=== PATIENT | male | born 1935 | race Caucasian/White ===

== ENCOUNTER 2023-11-26 10:43 | Emergency (ER) | payer MEDICARE, SELFPAY ==
[2023-11-26] VITALS (27 sets, daily range): BP systolic 133–200; BP diastolic 70–111; PULSE 60–101; RESP 12–24; TEMP 36.6; O2SAT 93–100
--- NOTE | ~2023-11-26 | CT_ITS ---
EXAMINATION: CT brain wo con DATE: 11/26/2023 13:47 INDICATION: Syncope. TECHNIQUE: Computed tomography (CT) of the head was performed without intravenous contrast. The mA wa s adjusted according to patient size. Iterative reconstruction technique was employed. The dose-lengt h product was 605.33 mGy-cm. COMPARISON: None FINDINGS: There are scattered areas of low attenuation in the cerebral white matter, which is within normal limits for the patient's age. There is no intracranial hemorrhage, acute infarction, or abnorm al intracranial mass lesion. The ventricles are normal in size. There is mild mucosal thickening in t he paranasal sinuses. The mastoid air cells are normal. There are likely changes of ocular lens repla cement surgeries. IMPRESSION: 1. Normal aging brain. Reviewed, dictated and finalized at location E. A ROOM OPERATOR IMPRESSION: 1. Normal aging brain.
--- NOTE | ~2023-11-26 | XR_ITS ---
XR chest 1V 11/26/2023 13:54 Indication: Transient alteration of awareness Procedure: AP view of the chest Comparison: No prior studies for comparison. Findings: Heart size is normal. No focal air space disease, pulmonary edema, pleural effusion or susp ected pneumothorax. There are calcified granulomas of the right lung. No acute osseous abnormality. Impression: 1: No acute cardiopulmonary disease. Reviewed, dictated and finalized at location L. NG MILL OPERATOR Impression: 1: No acute cardiopulmonary disease.
--- NOTE | 2023-11-26 10:50 | ECG_ITS ---
Measurements Intervals [place] Rate: 67 P: CT: 0 QRS: 13 QRSD: 121 T: 12 QT: 413 QTc: 439 Interpretive Statements ATRIAL FIBRILLATION RIGHT BUNDLE BRANCH BLOCK [120+ ms QRS DURATION, UPRIGHT V1, 40+ ms S IN I/aVL/V4/V5/V6] NO PREVIOUS ECG AVAILABLE FOR COMPARISON Electronically Signed On 11-26-2023 16:02:50 PROGRAMS DIRECTOR by Ever Perez M.D.
[2023-11-26 11:21] LABS: Basophils Absolute Auto 0.1 K/mm3 (0.0-0.1); Eosinophils Absolute Auto 0.4 K/mm3 (0-0.3); Eosinophils Percent Auto 5.4 % (0-4.4); Hematocrit 42.1 % (42.0-52.0); Hemoglobin 13.7 g/dL (14.0-18.0); Immature Granulocyte Absolute 0.02 K/mm3 (0.00-0.031); Immature Granulocyte Percent A 0.3 % (0-0.5); Lymphocytes Absolute Auto 1.85 K/mm3 (0.9-3.2); Lymphocytes Percent Auto 26.9 % (18.3-44.2); Mean Corpuscular HGB Conc 32.5 g/dl (32-36); Mean Corpuscular Hemoglobin 29.4 pg (26-34); Mean Corpuscular Volume 90.3 fl (80-100); Mean Platelet Volume 11.9 fl (7.4-10.4); Monocytes Absolute Auto 0.4 K/mm3 (0.1-0.6); Monocytes Percent Auto 5.5 % (2.6-8.5); Neutrophils Absolute Auto 4.2 K/mm3 (1.3-6.7); Neutrophils Percent Auto 60.9 % (45.5-73.1); Platelet Count Result 199 k/mm3 (150-375); Red Blood Count 4.66 M/mm3 (4.6-6.20); Red Cell Distribution Width 13.4 % (11.5-14.5); White Blood Count 6.9 K/mm3 (4.5-10.0)
[2023-11-26 11:32] LABS: Alanine Aminotransferase 18 U/L (6-50); Albumin Level 3.6 g/dL (3.5-5.1); Alkaline Phosphatase 116 U/L (38-126); Anion Gap 8 mmol/L (8-16); Aspartate Amino Transferase 22 U/L (17-59); Bilirubin,Total 0.6 mg/dL (0.2-1.3); Blood Urea Nitrogen 15 mg/dL (9-20); Calcium 9.1 mg/dL (8.4-10.2); Carbon Dioxide 24 mmol/L (22-30); Chloride 105 mmol/L (98-107); Estimated CRCL calculation 39 ml/min; Estimated Glomerular Filt Rate > 60; Glucose 102 mg/dL (65-110); Potassium 4.3 mmol/L (3.4-5.0); Sodium 137 mmol/L (137-145)
[2023-11-26 13:09] LABS: Magnesium 1.7 mg/dL (1.6-2.3)
[2023-11-26] MEDS: SODIUM CHLORIDE 0.9% IV 1,000 ML 999 ML IV CONT (13:09)
[2023-11-26 13:22] LABS: Troponin I < 0.012 ng/mL (0.000-0.034)
[2023-11-26 13:41] LABS: Appearance Urine Clear (Clear); Bilirubin Urine Negative (Negative); Blood Urine Negative (Negative); Color Urine Yellow (Yellow); Glucose Urine UA Negative (Negative); Ketones Urine Negative (Negative); Leukocyte Esterase Ur Negative LEU/UL (Negative); Nitrate Urine Negative (Negative); Protein Urine Negative (Negative); Specific Grav Ur 1.007 (1.001-1.035)
[2023-11-26 13:43] LABS: Add Urine Microscopic? YES
--- NOTE | 2023-11-26 14:41 | ED.SYNCOPE ---
HPI - Syncope General Chief Complaint: Syncope Stated Complaint: syncope Time Seen by Provider: 11/26/23 12:05 Source: patient, EMS, RN notes reviewed and old records reviewed Mode of arrival: EMS Limitations: no limitations History of Present Illness HPI narrative: This is an 88 year old male who presents from home for evaluation of syncope. Patient states he was reaching for something in the cabinet when he became dizzy. His family witnessed patient have syncopal episode. They reports they were able to catch pain and lower him to the ground. Patient was unresponsive until they laid him on the floor. They reports patient tried to get up initially off the floor but he could not. EMS was called and it is reported this blood pressure dropped from 130s systolic to 90 systolic. Related Data Home Medications Medication Instructions Recorded Confirmed alfuzosin 10 mg tablet,extended 10 mg PO DAILY 05/21/22 05/21/22 release 24 hr atorvastatin 20 mg tablet 20 mg PO DAILY 05/21/22 05/21/22 lisinopril 40 mg tablet 40 mg PO DAILY 05/21/22 05/21/22 Allergies Allergy/AdvReac Type Severity Reaction Status Date / Time No Known Allergies Allergy Unknown Verified 05/21/22 14:20 Review of Systems Review of Systems: All systems reviewed & are unremarkable except as noted in HPI and below PMFSH Past Medical History Medical History (Updated 11/26/23 @ 15:28 by Sheron Martinez MD) Enlarged prostate GERD (gastroesophageal reflux disease) Surgical History Surgical History (Updated 11/26/23 @ 14:47 by Sheron Martinez MD) History of cholecystectomy Social History Social History Alcohol intake: never Substance use: never Exam Const: General: no acute distress and alert Nutritional Appearance: well nourished Orientation/consciousness: patient oriented x3 HENMT: Head: normal to inspection Ears: external ears normal Eyes: EOM: EOMs intact bilaterally Chest: Chest palpation & inspection: normal inspection of the chest Resp: Effort & Inspection: normal respiratory effort Auscultation: clear to auscultation bilaterally Cardio: Rate: regular rate Rhythm: regular rhythm Heart sounds: no murmurs GI: GI Palp: Yes Soft to palpation, No Tenderness to palpation present (GI), No Guarding due to palpation present (GI) and No Rigid due to palpation Auscultation: normal bowel sounds Skin: General skin exam: normal color Rashes: no rashes Wounds: no wounds Neuro: General: patient oriented x3, moves all extremities and CN's II-XI intact bilaterally Extrem: General: normal to inspection Psych: Mental Status: mental status grossly normal Affect: normal affect Attitude: cooperative Course Reevaluation(s) Reevaluation #1: Patient states he feels better. He has no complaints. He denies dizziness with standing. He likely had syncopal episode due to orthostatic hypotension. He was given 1 liter IV fluid. He will stop his prostate medication alfuzosin Date: 11/26/23 Time: 15:23 Vital Signs Vital signs: Vital Signs Pulse Rate 60 11/26/23 10:43 Respiratory Rate 14 11/26/23 10:43 Blood Pressure 152/70 H 11/26/23 10:43 Pulse Oximetry 100 11/26/23 10:43 Oxygen Delivery Room Air 11/26/23 10:43 Temperature 98 F 11/26/23 15:52 Pulse Rate 80 11/26/23 15:52 Respiratory Rate 18 11/26/23 15:52 Blood Pressure 170/97 H 11/26/23 15:52 Pulse Oximetry 98 11/26/23 15:52 Oxygen Delivery Room Air 11/26/23 10:43 MDM - Syncope Differential Diagnosis Differential diagnosis: Likely syncope due to orthostatic hypotension, vasovagal syncope, complete atrioventricular block, subarachnoid hemorrhage, pulmonary embolism (unlikely) and dehydration Medical Records Attestation: I reviewed the patient's medical records. Lab Data Attestation: I reviewed the patient's lab results. 11/26/23 11:12 11/26/23 11:12
== END 2023-11-26 15:54 | disposition home or self-care (01) ==
PROVIDERS: Emergency Medicine; Emergency Provider General Practice; PCP Internal Medicine
DX: I95.1 Orthostatic hypotension (principal)
CPT/HCPCS: 36415; 70450; 71045; 80053; 81001; 83735; 84484; 85025; 93005; 96360; 99284; J7030